=== PATIENT | male | born 1955 | race Caucasian/White ===

== ENCOUNTER → 2016-07-02 | Day surgery (SDC) | payer OTHER ==
[~2016-07-02] MED LIST: ALBUTEROL17 GM INH; ALBUTEROL17 GM PO; BAYER ASPIRIN325 M1 PO; CAMBIA50 MG PO; CIPRO PO; COQ-1050 MG PO; FLONASE ALLERG9.9 ML; FOLIC ACID1 MG PO; GLUCOSAMINE500 M2 PO; IRON134 MG PO; LIPITOR40 MG PO; MEDROL DOSEPAK4 MG DOB; OMEPRAZOLE20 M1 PO; OMEPRAZOLE40 M1 PO; PLAVIX PO; ROBAXIN PO; SPIRIVA18 MCG PO; TOPROL XL50 MG PO; VITAMIN B122500 MC1; ZANTAC150 MG PO; ZYRTEC10 M1 PO; ZYRTEC10 M3 PO
--- NOTE | ~2016-07-02 | OR ---
Unit #: [id number] #: [id number] Patient: MARKEL BURLESON [id number] [address] [address] [id number] MR#: [id number] NAME: MARKEL BURLESON ROOM: Date of Procedure: 07/02/2016 Admission Date: 07/02/2016 Surgeon: Ascencion Duffy M.D. : 1955 Attending Physician: Ascencion Duffy M.D. Primary Care Physician: Ugo Ortiz M.D. OPERATIVE REPORT PREOPERATIVE DIAGNOSIS Hemoccult-positive stools. POSTOPERATIVE DIAGNOSIS Hemoccult-positive stools. PROCEDURES PERFORMED 1. Esophagogastroduodenoscopy. 2. Colonoscopy to cecum. 3. Polypectomy at 25 cm with electrocautery snare and hemoclip placement. ANESTHESIA Monitored anesthesia care. FINDINGS The patient was found on upper endoscopy to have mild gastritis. On colonoscopy, the patient was found to have scattered hollis-diverticular disease, mild internal hemorrhoids, as well as a 1 cm polyp at 25 cm that was excised completely with electrocautery snare with good hemostasis and hemoclip placement. SPECIMENS Sent to pathology. COMPLICATIONS None apparent. CONDITION The patient tolerated the procedure well. INDICATIONS FOR PROCEDURE The patient is a 61-year-old white male, who presents at this time with Hemoccult-positive stools. He presents at this time for evaluation by upper and lower endoscopy. DESCRIPTION OF PROCEDURE After obtaining informed consent, the patient was brought to the endoscopy suite and after adequate monitored anesthesia care, had the endoscope placed through the mouth into the upper esophagus under direct vision. It was advanced to the second portion of the duodenum without difficulty with the lumen always in view. The second and third portion of the duodenum were normal as was the duodenal bulb. The pylorus opened normally. There Unit #: [id number] #: [id number] Patient: MARKEL BURLESON was some mild distal gastritis present. On retroflexion back to the GE junction, there was no hiatal hernia seen. There was no abnormality seen in the proximal third, middle third, or incisura. On pulling back above the GE junction, the patient was found to have no stenosis, stricture, or neoplasm seen. There was no significant esophagitis. The remaining portion of the esophagus was within normal limits. Laryngeal structures were grossly normal as viewed from above. At this point in time, the colonoscope was placed through the anus and slowly advanced to the level of the cecum without difficulty with lumen always in view. There was no abnormality seen in the cecum. The ileocecal valve was normal. There was scattered hollis-diverticular disease present throughout the colon, most numerous in the sigmoid colon. Other than this, there was no abnormality seen in the ascending colon, hepatic flexure, transverse colon, splenic flexure, or descending colon. In the mid sigmoid colon, other than diverticular disease, the patient was found to have 1 cm polyp. This was at 25 cm. It was excised completely with electrocautery snare, retrieved with a mucus trap. There was good hemostasis, but a hemoclip was placed on the stalk to ensure good hemostasis. The remaining portion of the sigmoid colon, rectosigmoid, and rectum were all within normal limits. On retroflexing in the rectum to the anorectal junction, there were some mild internal hemorrhoids seen. The scope was removed without difficulty. The patient tolerated the procedure well and went from the endoscopy suite to the recovery area in stable condition. RECOMMENDATIONS Gastroesophageal reflux sheet given. Diverticular sheet given. High-fiber diet, lots of liquids, tucks or wipes p.r.n. Call Friday for pathology. Dictated by... Vanessa Downey/mik TD: 07/02/2016 22:07 JOB #: [id number] [facility] OPERATIVE REPORT Page 1 of 1 X Ascencion Duffy MD PROCEDURE OPERATIVE NOTE
== END | disposition home or self-care (01) ==
LOC: COPS 11:21
DX: C18.7 Malignant neoplasm of sigmoid colon (principal); K29.70 Gastritis, unspecified, without bleeding; K57.30 Diverticulosis of large intestine without perforation or abscess without bleeding; K64.8 Other hemorrhoids; R19.5 Other fecal abnormalities; J44.9 Chronic obstructive pulmonary disease, unspecified; I25.10 Atherosclerotic heart disease of native coronary artery without angina pectoris; J45.909 Unspecified asthma, uncomplicated; K21.9 Gastro-esophageal reflux disease without esophagitis; Z88.1 Allergy status to other antibiotic agents
CPT/HCPCS: 88305; J2250

== ENCOUNTER → 2016-07-30 | Outpatient (CLI) | payer OTHER | END | disposition home or self-care (01) | LOC: CLAB 07:19 | DX: R14.0 Abdominal distension (gaseous) (principal); Z86.19 Personal history of other infectious and parasitic diseases | CPT/HCPCS: 36415; 86677 ==